=== PATIENT | male | born 1975 | race Caucasian/White ===

== ENCOUNTER 2022-04-04 15:25 | Inpatient (IN) ==
[2022-04-04 16:15] LABS: Basophils # 0.1 K/mcL (0.0-0.2); Basophils % 0.6 %; Eosinophils % 0.3 %; Hematocrit 48.6 % (37.5-50.1); Hemoglobin 16.7 g/dL (12.9-16.9); Immature Granulocytes % 0.2 % (0-4); Lymphocytes % 31.7 %; Mean Corpuscular HGB Conc 34.4 g/dL (31.6-35.5); Mean Corpuscular Hemoglobin 31.3 pg (28.0-33.3); Mean Corpuscular Volume 91.2 fL (83.0-100.0); Mean Platelet Volume 10.5 fL (9.4-12.4); Monocytes # 0.8 K/mcL (0.0-1.3); Neutrophils # 7.7 K/mcL (1.6-8.9); Platelet Count 260 K/mcL (140-400); Red Blood Count 5.33 M/mcL (4.19-5.50); Red Cell Distribution Width 13.2 % (11.5-14.5); Segmented Neutrophils % 61.2 %; White Blood Count 12.6 K/mcL (4.3-11.1)
[2022-04-04] MEDS ORDERED: Iopamidol - 370 500 ML MLS IVP ONE (16:21)
[2022-04-04] MEDS ORDERED: *HR* Labetalol 20 MG/4 ML SYRINGE IVP ONE (16:22)
[2022-04-04 16:28] LABS: BUN/Creatinine Ratio 8 (6-26); Blood Urea Nitrogen 7 mg/dL (6-20); Calcium 10.1 mg/dL (8.6-10.3); Carbon Dioxide 24 mEq/L (23-29); Chloride 103 mEq/L (98-107); Glucose 94 mg/dL (70-105); Osmolality,Calculated 282 (280-300); Potassium 3.7 mEq/L (3.5-5.1); Sodium 137 mEq/L (136-145)
[2022-04-04 16:29] LABS: Troponin I < 0.03 ng/mL (< 0.04)
[2022-04-04 17:36] LABS: Thyroid Stimulating Hormone 2.056 mcIU/mL (0.340-5.600)
[2022-04-04] MEDS: niCARdipine 20 MG/200 ML MLS IVC SCH ×2 (19:42→22:22)
[2022-04-04] MEDS ORDERED: Ondansetron ODT 4 MG TAB.RAPDIS SL PRN (21:29)
[2022-04-04] MEDS ORDERED: Naloxone 0.4 MG/ML INJ IVP PRN (21:29)
[2022-04-04] MEDS ORDERED: Acetaminophen 325 MG TABLET PO PRN (21:31)
[2022-04-05 04:47] LABS: Hemoglobin 15.7 g/dL (12.9-16.9); Mean Corpuscular HGB Conc 34.1 g/dL (31.6-35.5); Mean Corpuscular Hemoglobin 31.3 pg (28.0-33.3); Mean Corpuscular Volume 91.6 fL (83.0-100.0); Mean Platelet Volume 10.2 fL (9.4-12.4); Platelet Count 226 K/mcL (140-400); Red Blood Count 5.02 M/mcL (4.19-5.50); Red Cell Distribution Width 13.2 % (11.5-14.5); White Blood Count 11.4 K/mcL (4.3-11.1)
[2022-04-05 05:02] LABS: BUN/Creatinine Ratio 10 (6-26); Blood Urea Nitrogen 8 mg/dL (6-20); Calcium 9.3 mg/dL (8.6-10.3); Carbon Dioxide 27 mEq/L (23-29); Chloride 101 mEq/L (98-107); Chol/HDL Ratio 9.1 (0-4.9); Cholesterol 247 mg/dL (< 200); Glucose 102 mg/dL (70-105); HDL Cholesterol 27 mg/dL (40-59); LDL Cholesterol,Calculated 177 mg/dL (< 100); Magnesium 1.9 mg/dL (1.6-2.6); Osmolality,Calculated 293 (280-300); Potassium 3.7 mEq/L (3.5-5.1); Sodium 142 mEq/L (136-145); Triglycerides 217 mg/dL (< 150)
[2022-04-05 05:16] LABS: Estimated Average Glucose 117 mg/dl; Hemoglobin A1C 5.7 %
[2022-04-05] MEDS: niCARdipine 20 MG/200 ML MLS IVC SCH ×4 (06:23→18:34)
[2022-04-05] MEDS: *HR* Heparin 5,000 UNIT/ML VIAL SQ SCH ×3 (06:23→21:16)
[2022-04-05] MEDS: Aspirin 81 MG TAB.CHEW PO SCH (09:09)
[2022-04-05] MEDS: amLODIPine 5 MG TABLET PO SCH (14:37)
[2022-04-06] MEDS: *HR* Heparin 5,000 UNIT/ML VIAL SQ SCH ×3 (06:20→21:41)
[2022-04-06] MEDS: amLODIPine 5 MG TABLET PO SCH (08:35)
[2022-04-06] MEDS: Aspirin 81 MG TAB.CHEW PO SCH (08:36)
[2022-04-06] MEDS ORDERED: lisinopriL 10 MG TABLET PO SCH (09:00)
[2022-04-06] MEDS ORDERED: lisinopriL 10 MG TABLET PO ONE (11:56)
[2022-04-07] MEDS: *HR* Heparin 5,000 UNIT/ML VIAL SQ SCH ×2 (05:06→16:46)
[2022-04-07] MEDS: Aspirin 81 MG TAB.CHEW PO SCH (07:25)
[2022-04-07] MEDS: amLODIPine 5 MG TABLET PO SCH (07:25)
[2022-04-07] MEDS ORDERED: lisinopriL 10 MG TABLET PO SCH (09:00)
[2022-04-07] MEDS ORDERED: Lidocaine Viscous Oral Soln 15 ML SOLUTION MM PRN (14:29)
[2022-04-07] MEDS ORDERED: 0.9 % Sodium Chloride 500 ML IVC ONE (14:29)
[2022-04-07 14:47] VITALS: TEMP 97.8
[2022-04-07] MEDS: *HR* FentaNYL (PF) 100 MCG/2 ML VIAL IVP PRN ×2 (14:55→15:00)
[2022-04-07] MEDS: *HR* Midazolam HCl 5 MG/5 ML VIAL IVP PRN ×2 (14:55→15:00)
[2022-04-07 15:57] VITALS: BP 159/107; PULSE 86; O2SAT 95
== END 2022-04-07 18:12 | disposition home or self-care (01) | DRG 65 ==
LOC: EMEROOARM 15:25 → 2NNU 15:25 → SUATTDRO 21:00 → 2NNU 21:39 → 2NENU 04-06 22:37
PROVIDERS: ADMIT Internal Medicine; ATTEND Internal Medicine